=== PATIENT | female | born 1985 | race Caucasian/White ===

== ENCOUNTER 2018-01-16 07:58 | Day surgery (SDC) | payer MEDICAID ==
[~2018-01-16] VITALS: Ht 160 cm; Wt 49.5 kg
[~2018-01-16 07:58] MED LIST: GABA-532 PO; IBUP-1986 PO
[2018-01-16] MEDS ORDERED: VITAMIN (08:09)
[2018-01-16] MEDS ORDERED: D3 (08:10)
[2018-01-16 08:11] VITALS: BP 104/79
[2018-01-16] MEDS ORDERED: CYAN-19 PO (08:11)
[2018-01-16] MEDS ORDERED: LIDOcaine Viscous 15ml cup ONE (08:15)
[2018-01-16] MEDS ORDERED: MIDAZolam 5mg/5ml vial ONE (08:15)
[2018-01-16] MEDS ORDERED: fentaNYL/PF 50MCG/1 ML 2ML syringe ONE (08:15)
[2018-01-16 09:10] VITALS: BP 89/57
[2018-01-16 09:20] VITALS: BP 93/60
[2018-01-16 09:30] VITALS: BP 93/63
== END 2018-01-16 10:10 | disposition home or self-care (01) ==
LOC: GI LAB 07:58
PROVIDERS: ATTEND Internal Medicine Gastroenterology
DX: K20.9 Esophagitis, unspecified (principal); G89.29 Other chronic pain; F17.210 Nicotine dependence, cigarettes, uncomplicated; Z98.51 Tubal ligation status; Z79.899 Other long term (current) drug therapy
CPT/HCPCS: 43239; 99152; J2250; J3010; J7030; A4620